=== PATIENT | male | born 1930 | race Caucasian/White ===

== ENCOUNTER 2017-01-29 15:44 | Inpatient (IN) ==
[2017-01-29] MEDS ORDERED: ACETAMINOPHEN 325 MG TABLET PO PRN (16:00)
[2017-01-29] MEDS ORDERED: HYDROmorphone 2 MG/1 ML VIAL IV PRN (16:00)
[2017-01-29] MEDS: SODIUM CHLORIDE 0.9% 1,000 ML IV SCH (17:32)
[2017-01-29] MEDS: ENOXAPARIN 40 MG/0.4 ML SYRINGE SUBCUT SCH (17:32)
[2017-01-29 18:15] LABS: Basophils % 0.3 % (0.0-0.8); Eosinophils % 0.3 % (0.00-10.9); Hematocrit 44.3 VOL% (42.0-52.0); Hemoglobin 15.4 GM/DL (14.0-18.0); Immature Granulocytes % 0.2 %; Immature Granulocytes Absolute 0.02 #; Lymphocytes # 0.9 10*3/uL (1.4-4.0); Lymphocytes % 10.2 % (21.2-54.2); Mean Corpuscular HGB Conc 34.8 GM/DL (32-36); Mean Corpuscular Hemoglobin 32 PG (27-34); Mean Corpuscular Volume 91.7 FL (87-102); Mean Platelet Volume 10.1 FL (9.6-12.0); Monocytes % 10.7 % (1.7-12.7); Neutrophils # 6.9 10*3/uL (1.4-7.4); Neutrophils % 78.3 % (38.7-73.9); Platelet Count 220 T/CUMM (130-400); Red Blood Count 4.83 MC/CUMM (3.8-5.5); White Blood Count 8.8 T/CUMM (4-12)
[2017-01-29 18:38] LABS: Albumin 3.6 G/DL (3.4-5.0); Bilirubin,Total 1.6 MG/DL (0.2-1.0); Calcium 8.8 MG/DL (8.5-10.1); Osmolality,Calculated 277.7 MOS/KG (273-304); Potassium 3.7 MMOL/L (3.5-5.1); Total Protein 6.6 G/DL (6.4-8.3)
[2017-01-29] MEDS: ONDANSETRON 4 MG/2 ML VIAL IV PRN (19:05)
--- NOTE | 2017-01-29 20:45 | CT Report ---
CT abdomen pelvis w con Indication: Abdominal pain/pelvic pain Comparison: 01/27/2017. Technique: CT of the abdomen and pelvis was performed following administration of intravenous contrast. Coronal and sagittal reformatted images were additionally created and submitted for review. The total DLP is 328 mGy*cm. Dose reduction: This CT exam was performed using one or more of the following dose reduction techniques: Automated exposure control, automated adjustment of the mA and/or KV according to patient size, or use of iterative reconstruction technique. Findings: Posterior basilar atelectasis is noted. There is no pleural or pericardial effusion. ABDOMEN: Liver/Gallbladder: No abnormal enhancing lesions. No biliary ductal dilatation or gallstones. Portal vein is patent. Spleen: No acute findings. Pancreas: No acute findings. Adrenals: Within normal limits in appearance. Kidneys: Kidneys enhance symmetrically. There is normal excretion on delayed images. There is no hydronephrosis. Bowel/mesentery: Moderate distal dilatation of the small bowel is noted throughout the abdomen/pelvis. In the right lower quadrant, there is transition to collapsed bowel (axial image 99-100). The findings are compatible with high-grade partial small bowel obstruction. There is also a moderate amount of interloop fluid noted in the right lower quadrant suggesting developing mesenteric edema. There is minimal free fluid in the dependent pelvis as well which is likely reactive. There is no free air. There is no mesenteric adenopathy. Colon is largely collapsed with scattered fecal material and scattered diverticula with no CT evidence of acute diverticulitis. Retroperitoneum: No evidence of aortic aneurysm or significant retroperitoneal adenopathy. PELVIS: Minimal free fluid, likely reactive. Prostate is enlarged measuring up to 5 cm in the axial plane. There is no adenopathy in the pelvis. Bladder is mildly distended but otherwise unremarkable. BONES: No acute or suspicious osseous abnormalities are identified. Left total hip arthroplasty hardware causes streak artifact and otherwise poorly evaluated. Multilevel moderate to advanced degenerative changes noted within the thoracic and lumbar spine. IMPRESSION: 1. Findings compatible with high-grade small bowel obstruction with transition point in the right lower quadrant. Minimal free fluid also noted about the distal abdominal right lower quadrant and pelvis. Surgical consultation is warranted. No free air. 2. No other acute evaluate within the abdomen or pelvis. Other incidental findings as above. 01/29/2017 7:55 PM PROCEDURE INTERPRETED AT [facility] DEPARTMENT OF RADIOLOGY Final Report Signed by: Choco Booth
[2017-01-29] MEDS: DOCUSATE SODIUM 100 MG CAPSULE PO SCH (21:17)
[2017-01-29] MEDS: LEVOFLOXACIN INJ 500 MG in PREMIX 1 EACH IV SCH (21:18)
[2017-01-30] MEDS: ONDANSETRON 4 MG/2 ML VIAL IV PRN (03:03)
[2017-01-30] MEDS: SODIUM CHLORIDE 0.9% 1,000 ML IV SCH ×3 (03:04→19:37)
--- NOTE | 2017-01-30 07:58 | Family Practice History&Phys ---
Assessment and Plan (1) Small bowel obstruction Status: Acute Assessment and plan: 01/30/2017: CT scan of the abdomen and pelvis revealed him to have a mechanical small bowel obstruction. Surgery will be consulted. Current Visit: Yes (2) Gastroenteritis Status: Acute Assessment and plan: 01/30/2017: IV fluids were begun. Surgical consultation has been sought. Current Visit: No History of Present Illness Chief complaint: Abdominal pain History of present illness: Mr. Lim is a 86 year old male Patient's 86-year-old white male presented my office on day of admission with abdominal pain, nausea and vomiting. Patient had been seen in the emergency room and had a CT scan of the abdomen which showed abnormality in his distal small bowel. Patient states she has not had any bowel movement in the last 5 days and has had persistent nausea and vomiting and loss of appetite. Patient was noted to have a 4 pound weight loss on arrival to my office. It was felt that admission was warranted due to the severity of his symptoms. Patient agreed with this plan. An emergent CT the abdomen/pelvis will be repeated with oral and IV contrast. Home Medications Medication Instructions Recorded Confirmed Type No Known Home Medications [No 01/29/17 01/29/17 History Known Home Medications] Allergies Allergy/AdvReac Type Severity Reaction Status Date / Time No Known Allergies Allergy Verified 01/27/17 07:36 - Constitutional Constitutional: Present: fatigue, weakness. Absent: chills, fever(s) - EENT Eyes: Absent: blurry vision, loss of vision Ears: Absent: decreased hearing, ear pain Nose, mouth and throat: Absent: dysphagia, nasal congestion, sore throat - Cardiovascular Cardiovascular: Absent: chest pain at rest, dyspnea, orthopnea, palpitations, PND - Respiratory Respiratory: Absent: cough, dyspnea, wheezing - Gastrointestinal Gastrointestinal: Present: abdominal pain, bloating, constipation, cramping, nausea, vomiting. Absent: hematemesis, hematochezia - Genitourinary Genitourinary: Absent: dysuria, urinary frequency, urinary incontinence - Musculoskeletal Musculoskeletal: Absent: arthralgias, back pain - Neurological Neurological: Absent: confusion, focal weakness, numbness, paresthesias - Psychiatric Psychiatric: Absent: anxiety, confusion - Endocrine Endocrine: Absent: fatigue, polydipsia, polyphagia - Hematologic/Lymphatic Hematologic/Lymphatic: Absent: easy bleeding, easy bruising Medical,Surgical,& Family Hx - Medical History Medical History: noncontributory - Surgical History Abdominal Surgeries: Surgical HX of: Appendectomy, Hernia Repair Orthopedic Surgeries: Surgical HX of;: Total Hip Replacement (LEFT) - Family History Family History: noncontributory - Social History Smoking Status: Never smoker Frequency of Alcohol Use: None Type of Drug Use: None Exam - Constitutional Vitals: Period Temp Pulse Resp BP Sys/Bonner Pulse Ox Last 24 Hr 98 F-98.2 F 75-89 20-20 133-156/74-87 92-97 Exam: General: Objective patient is a well-developed white male who appeared a bit dehydrated in the office. He appeared very uncomfortable but was able to give an excellent history. He has enjoyed robust health office life. HEENT: Pupils equal and reactive to light. Patent nares and airway Neck: No meningismus, adenopathy, thyromegaly. There are no auscultated carotid bruits. Cardiovascular: Regular rhythm. No murmurs or gallops Chest: Clear to auscultation without rales rhonchi wheezes. Abdomen: Them is noted to be slightly distended. He is noted to have high- pitched bowel sounds. There is no palpable mass, rebound or guarding tenderness noted. He is noted to have diffuse direct tenderness. Neuro: Cranial nerves intact and DTRs and strength symmetric in all extremities. Dermatologic: No evidence of abnormal lesions or masses. Musculoskeletal: There is no joint swelling or tenderness or deformity. Extremities: There is no calf swelling or tenderness. Results - Labs CBC & BMP: 01/29/17 17:42 01/29/17 17:42 Lab Results: I have reviewed the past 24 hour labs - Diagnostic Findings Procedure: CT Abdomen and Pelvis: report reviewed by me (Small bowel obstruction ) Quality Measures - Stroke Symptom Onset Unknown: No
--- NOTE | 2017-01-30 08:04 | EKG Report ---
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
[2017-01-30] MEDS: PANTOPRAZOLE 40 MG TABLET PO SCH (08:27)
[2017-01-30] MEDS: DOCUSATE SODIUM 100 MG CAPSULE PO SCH ×2 (08:27→20:52)
--- NOTE | 2017-01-30 08:35 | XRay Report ---
Portable chest January 30, 2017 at 0751 hours Indication: Shortness of breath, cough Comparison: Not available Findings: Heart size is top normal. Lungs are clear bilaterally. No acute osseous abnormalities. Visualized upper abdomen demonstrates no acute pathology. Impression: No acute cardiopulmonary findings PROCEDURE INTERPRETED AT [facility] DEPARTMENT OF RADIOLOGY Final Report Signed by: Robbie Jensen
--- NOTE | 2017-01-30 10:50 | General Surgery Consult Note ---
Assessment and Plan - Time spent with patient Time spent with patient: Greater than 30 minutes (1) Small bowel obstruction Status: Acute Assessment and plan: This appears to be a typical small bowel obstruction likely secondary to adhesions and I do not see evidence of intestinal compromise or ischemia. I discussed his options for treatment which would include surgery but also the option initially of conservative treatment with nasogastric suction and IV fluids. I explained that he may have up to a 50% chance of resolution of the small bowel obstruction without surgery but if he is not responding to nasogastric suction over the next 24 hours or so we would need to revisit the issue of surgery. He would like to try conservative management initially which I think is reasonable. This will also give us an opportunity to rehydrate him and correct any underlying volume depletion. His BUN is somewhat elevated but his creatinine is normal. This is likely related to some degree of volume depletion. Overall he looks good and feels well and his abdomen is nontender. If he does not respond to conservative treatment then he understands that he will likely require laparotomy. The procedure and risks were discussed in detail. Current Visit: Yes History of Present Illness Chief complaint: Abdominal pain History of present illness: Mr. Lim is a 86 year old male Who for about 5 days is had intermittent abdominal pain and distention and cramping. This has stayed moderate in severity. It is intermittent and does not radiate and is poorly localized in his lower abdomen. He is better if he massages his abdomen. He has not had a bowel movement or flatus in 5 days. He has had nausea and vomiting. He felt better after he vomited. He had a CT scan showing a high-grade partial small bowel obstruction in his right lower quadrant. He has had previous appendectomy and previous hernia surgery. Home Medications Medication Instructions Recorded Confirmed Type No Known Home Medications [No 01/29/17 01/29/17 History Known Home Medications] Allergies Allergy/AdvReac Type Severity Reaction Status Date / Time No Known Allergies Allergy Verified 01/27/17 07:36 Medical,Surgical,& Family Hx - Medical History Medical History: noncontributory - Surgical History Abdominal Surgeries: Surgical HX of: Appendectomy, Hernia Repair Orthopedic Surgeries: Surgical HX of;: Total Hip Replacement (LEFT) - Family History Family History: noncontributory - Social History Smoking Status: Never smoker Frequency of Alcohol Use: None Type of Drug Use: None - Constitutional Constitutional: Present: anorexia. Absent: chills, fever(s), weight loss - EENT Nose, mouth and throat: Absent: dysphagia - Cardiovascular Cardiovascular: Absent: chest pain at rest, chest pain with activity, dyspnea, dyspnea on exertion, syncope - Respiratory Respiratory: Absent: dyspnea, hemoptysis, dyspnea on exertion - Gastrointestinal Gastrointestinal: Present: abdominal pain, bloating, cramping, nausea, vomiting. Absent: diarrhea, hematemesis, hematochezia, jaundice - Genitourinary Genitourinary: Absent: hematuria - Musculoskeletal Musculoskeletal: Absent: back pain - Neurological Neurological: Absent: focal weakness, syncope - Endocrine Endocrine: Absent: polyuria Hematologic/Lymphatic: Absent: easy bleeding, easy bruising Exam - Constitutional Vitals: Period Temp Pulse Resp BP Sys/Bonner Pulse Ox Last 24 Hr 97.3 F-98.2 F 75-89 18-20 133-156/74-87 92-97 General appearance: no acute distress - Head Head exam: Present: normocephalic - Eye Eye exam: Absent: scleral icterus - ENT Mouth exam: Present: normal voice - Neck Neck exam: Present: trachea midline - Respiratory Respiratory exam: Present: clear to auscultation bilaterally. Absent: accessory muscle use - Cardiovascular Cardiovascular exam: Present: RRR - GI/Abdominal GI/Abdominal exam: Present: hypoactive bowel sounds, soft. Absent: distended, guarding, mass, Napoles's sign, tenderness, rebound - Extremities Exam Extremities exam: Absent: edema - Neurological Exam Neurological exam: Present: alert, oriented X3. Absent: motor sensory deficit Speech: Present: normal - Skin Skin exam: Present: normal color Quality Measures - Stroke Symptom Onset Unknown: No Results - Labs CBC & BMP: 01/29/17 17:42 01/29/17 17:42 Lab Results: I have reviewed the past 24 hour labs - Diagnostic Findings Procedure: CT Abdomen and Pelvis: image reviewed by me, report reviewed by me
--- NOTE | 2017-01-30 11:52 | Gastrointestinal Consult Note ---
Assessment and Plan (1) Small bowel obstruction Status: Acute Assessment and plan: 01/30-5 day history of abdominal pain with intractable nausea and vomiting as well as constipation. Findings as below on CT of abdomen with high-grade small bowel obstruction. NG tube to be placed today and continue to monitor. Plan an addendum to followed by Dr. Camren. Current Visit: Yes History of Present Illness Chief complaint: Abdominal pain History of present illness: Mr. Lim is a 86 year old male who was admitted to the hospital with 5 day history of abdominal pain, nausea and vomiting. Patient states that he was in his usual state of health until possibly 5 days ago when he had an onset of mid umbilical abdominal pain. He states the pain was also associated with nausea and vomiting as well as complete loss of appetite. Patient states that every time he would try to eat or drink something he would immediately regurgitate it. He states that he has not had a bowel movement as well in the last 5 days and does not recall passing any flatulence since then as well. Patient reports approximately 4 pound weight loss over the last several days due to not eating. Patient was seen by Dr. Hardy in the clinic and at that time had a CT of abdomen done which showed high-grade small bowel obstruction with transition point in the right lower quadrant with minimal free air. He was then admitted to the hospital for further evaluation. Patient has a history of appendectomy and hernia repair in the past. States that he is relatively healthy and has no prior history of GI issues as well. He has been seen and consulted by Dr. Mclaughlin and at this time he is to have an NG tube placed and reevaluation in the next 24 hours with hopes of improvement with conservative treatment. Home Medications Medication Instructions Recorded Confirmed Type No Known Home Medications [No 01/29/17 01/29/17 History Known Home Medications] Allergies Allergy/AdvReac Type Severity Reaction Status Date / Time No Known Allergies Allergy Verified 01/27/17 07:36 Medical,Surgical,& Family Hx - Surgical History Abdominal Surgeries: Surgical HX of: Appendectomy, Hernia Repair Orthopedic Surgeries: Surgical HX of;: Total Hip Replacement (LEFT) - Social History Smoking Status: Never smoker Frequency of Alcohol Use: None Type of Drug Use: None 12 point system: reviewed and no additional remarkable complaints except as stated - Constitutional Constitutional: Present: as per HPI - EENT Eyes: Present: as per HPI Ears: Present: as per HPI Nose, mouth and throat: Present: as per HPI - Cardiovascular Cardiovascular: Present: as per HPI - Respiratory Respiratory: Present: as per HPI - Gastrointestinal Gastrointestinal: Present: as per HPI, abdominal pain, constipation, nausea, vomiting - Genitourinary Genitourinary: Present: as per HPI - Musculoskeletal Musculoskeletal: Present: as per HPI - Neurological Neurological: Present: as per HPI - Psychiatric Psychiatric: Present: as per HPI - Endocrine Endocrine: Present: as per HPI - Hematologic/Lymphatic Hematologic/Lymphatic: Present: as per HPI Exam - Constitutional Vitals: Period Temp Pulse Resp BP Sys/Bonner Pulse Ox Last 24 Hr 97.3 F-98.2 F 75-89 18-20 133-156/74-87 92-97 General appearance: normal weight, no acute distress - Head Head exam: Present: normal inspection, normocephalic - Eye Eye exam: Present: other (Lids and conjunctivae are unremarkable). Absent: scleral icterus - ENT ENT exam: Present: normal exam, normal oropharynx - Neck Neck exam: Present: normal inspection - Respiratory Respiratory exam: Present: clear to auscultation bilaterally. Absent: rales, rhonchi, wheezes - Cardiovascular Cardiovascular exam: Present: regular rate and rhythm. Absent: diastolic murmur , JVD, systolic murmur - GI/Abdominal GI/Abdominal exam: Present: hypoactive bowel sounds, soft. Absent: ascites, distended, mass, organomegaly - Extremities Exam Extremities exam: Present: normal inspection, full ROM - Back Exam Back exam: Present: normal inspection - Neurological Exam Neurological exam: Present: alert, oriented X3 - Psychiatric Psychiatric exam: Present: normal affect, normal mood - Skin Skin exam: Present: normal color, warm, dry Results - Labs CBC & BMP: 01/29/17 17:42 01/29/17 17:42 Lab Results: I have reviewed the past 24 hour labs - Diagnostic Findings Procedure: CT Abdomen and Pelvis: report reviewed by me Quality Measures - Stroke Symptom Onset Unknown: No
--- NOTE | 2017-01-30 13:59 | XRay Report ---
Exam: XR chest /upper abdomen 1V portable Date: 01/30/2017 1:33 PM Indication: Nasogastric tube placement Comparison: 01/30/2017 7:51 AM. Technical: AP portable Findings: Nasogastric tube has been placed the distal some the fundus of the stomach. Mild prominence the cardiac silhouette. Some dilated change in the base regions bilaterally. Lateral marginal osteophytes are present. Liver shadow spleen and renal shadows are not well seen. Some dilated bowel in the upper abdomen. No pneumothorax or pneumoperitoneum. Impression: 1. Interval placement nasogastric tube in the fundus of the stomach 2. Remainder examination is unchanged with underlying atelectatic change. 3. Abdominal ileus pattern or partial small bowel obstruction PROCEDURE INTERPRETED AT [facility] DEPARTMENT OF RADIOLOGY Final Report Signed by: Dr. Dameon Hannah
[2017-01-30 15:31] LABS: Apearance,Urine CLEAR (Clear); Bilirubin,Urine Negative (Negative); Blood, Urine Small mg/dL (Negative); Glucose,Urine (UA) Negative (Negative); Ketones,Urine 80 mg/dL (Negative); Mucus,Urine Occasional /LPF (Occasional); Nitrite,Urine Negative (Negative); Protein,Urine Negative; RBC,Urine 1 /HPF (0-4); Squamous Epithelial Cell,Urine Occasional /HPF (0-10); Urine Color Yellow (Yellow); Urine Specific Gravity 1.036 (1.001-1.035); WBC,Urine <1 /HPF (0-6)
[2017-01-30] MEDS: ENOXAPARIN 40 MG/0.4 ML SYRINGE SUBCUT SCH (20:49)
[2017-01-30] MEDS: LEVOFLOXACIN INJ 500 MG in PREMIX 1 EACH IV SCH (20:49)
[2017-01-31] MEDS: SODIUM CHLORIDE 0.9% 1,000 ML IV SCH ×2 (05:42→20:21)
--- NOTE | 2017-01-31 07:52 | Family Practice Progress Note ---
Family Practice - PN: Subj Interval history: Patient states he had a much better night last night and is abdominal pain and bloating are much improved with NG suction. Is a minimal amount of fluid in his suction canister. He told me he passed a little gas this morning. I told him we may clamp his NG tube and see how he does. Dr. Mclaughlin will see him today. Exam (Progress Note) - Constitutional Vitals: Period Temp Pulse Resp BP Sys/Bonner Pulse Ox Last 24 Hr 97.3 F-98.5 F 75-87 16-20 126-153/67-86 93-97 Exam: Objective well-developed gentleman in no acute distress. He is awake and alert and appears much more comfortable than he did on day of admission. Cardiovascular: Heart rates regular and there are no murmurs or gallops. Respiratory: Lungs clear to auscultation bilaterally. Abdomen: Abdomen soft and nontender to palpation with no distention. I do appreciate bowel sounds. Results - Labs CBC & BMP: 01/29/17 17:42 01/29/17 17:42 Lab Results: I have reviewed the past 24 hour labs Assessment and Plan (1) Small bowel obstruction Status: Acute Assessment and plan: 01/30/2017: CT scan of the abdomen and pelvis revealed him to have a mechanical small bowel obstruction. Surgery will be consulted. 01/31/2017: Patient is clinically improving with NG tube suctioning Current Visit: Yes (2) Gastroenteritis Status: Acute Assessment and plan: 01/30/2017: IV fluids were begun. Surgical consultation has been sought. 01/31/2017: Patient is clinically improved Current Visit: No Quality Measures - Stroke Symptom Onset Unknown: No
--- NOTE | 2017-01-31 08:58 | General Surgery Progress Note ---
Assessment and Plan (1) Small bowel obstruction Status: Acute Assessment and plan: This appears to be a typical small bowel obstruction likely secondary to adhesions and I do not see evidence of intestinal compromise or ischemia. I discussed his options for treatment which would include surgery but also the option initially of conservative treatment with nasogastric suction and IV fluids. I explained that he may have up to a 50% chance of resolution of the small bowel obstruction without surgery but if he is not responding to nasogastric suction over the next 24 hours or so we would need to revisit the issue of surgery. He would like to try conservative management initially which I think is reasonable. This will also give us an opportunity to rehydrate him and correct any underlying volume depletion. His BUN is somewhat elevated but his creatinine is normal. This is likely related to some degree of volume depletion. Overall he looks good and feels well and his abdomen is nontender. If he does not respond to conservative treatment then he understands that he will likely require laparotomy. The procedure and risks were discussed in detail. 01/31: He looks and feels much better. He denies abdominal pain this morning. He passed a little flatus but has no bowel movement. I would continue the nasogastric tube for now. If he is better tomorrow then we may discontinue his tube. Hopefully we can avoid surgery. Current Visit: Yes Subjective Patient reports: Present: feels better, pain is less, flatus, no bowel movement. Absent: fever Exam - Constitutional Vitals: Period Temp Pulse Resp BP Sys/Bonner Pulse Ox Last 24 Hr 97.8 F-98.5 F 75-87 16-20 121-153/67-86 93-97 General appearance: no acute distress - Head Head exam: Present: normocephalic - Eye Eye exam: Absent: scleral icterus - ENT Mouth exam: Present: normal voice - Respiratory Respiratory exam: Absent: accessory muscle use - GI/Abdominal GI/Abdominal exam: Present: soft. Absent: distended, tenderness, rebound Results - Labs CBC & BMP: 01/29/17 17:42 01/29/17 17:42 Quality Measures - Stroke Symptom Onset Unknown: No
[2017-01-31] MEDS: PANTOPRAZOLE 40 MG TABLET PO SCH (10:37)
[2017-01-31] MEDS: DOCUSATE SODIUM 100 MG CAPSULE PO SCH (10:37)
--- NOTE | 2017-01-31 11:24 | Gastrointestinal Progress Note ---
Assessment and Plan (1) Small bowel obstruction Status: Acute Assessment and plan: 01/31-no complaints of nausea vomiting, no abdominal pain. NG remains to suction. Reports of flatus but no bowel movement. Continue to monitor present time. Plan an addendum to followed by Dr. Carmen 01/30-5 day history of abdominal pain with intractable nausea and vomiting as well as constipation. Findings as below on CT of abdomen with high-grade small bowel obstruction. NG tube to be placed today and continue to monitor. Plan an addendum to followed by Dr. Carmen. Current Visit: Yes Gastroenterology - PN: Subj Interval history: CC: Abdominal pain Patient is seen awake and alert sitting up in chair. States he rested well overnight and is feeling much better today. He denies any nausea or vomiting as well as abdominal pain. States he has had a little flatus last night and this morning but no bowel movement. He is continued with NG tube to suction at this time with small amount of gastric drainage noted. Abdomen is soft, nontender. Hypoactive bowel sounds noted. ROS: Denies shortness of breath or chest pain Exam (Progress Note) - Constitutional Vitals: Period Temp Pulse Resp BP Sys/Bonner Pulse Ox Last 24 Hr 97.8 F-98.5 F 75-87 16-20 121-153/67-86 93-97 - Other Additional findings: General appearance: normal weight, no acute distress - Head Head exam: Present: normal inspection, normocephalic - Eye Eye exam: Present: other (Lids and conjunctivae are unremarkable). Absent: scleral icterus - ENT ENT exam: Present: normal exam, normal oropharynx - Neck Neck exam: Present: normal inspection - Respiratory Respiratory exam: Present: clear to auscultation bilaterally. Absent: rales, rhonchi, wheezes - Cardiovascular Cardiovascular exam: Present: regular rate and rhythm. Absent: diastolic murmur , JVD, systolic murmur - GI/Abdominal GI/Abdominal exam: Present: hypoactive bowel sounds, soft. Absent: ascites, distended, mass, organomegaly - Extremities Exam Extremities exam: Present: normal inspection, full ROM - Back Exam Back exam: Present: normal inspection - Neurological Exam Neurological exam: Present: alert, oriented X3 - Psychiatric Psychiatric exam: Present: normal affect, normal mood - Skin Skin exam: Present: normal color, warm, dry Results - Labs CBC & BMP: 01/29/17 17:42 01/29/17 17:42 Lab Results: I have reviewed the past 24 hour labs
[2017-01-31] MEDS: ENOXAPARIN 40 MG/0.4 ML SYRINGE SUBCUT SCH (20:24)
[2017-01-31] MEDS: LEVOFLOXACIN INJ 500 MG in PREMIX 1 EACH IV SCH (20:24)
[2017-02-01] MEDS: DOCUSATE SODIUM 100 MG CAPSULE PO SCH ×3 (00:41→20:47)
[2017-02-01] MEDS: SODIUM CHLORIDE 0.9% 1,000 ML IV SCH ×2 (05:23→14:50)
--- NOTE | 2017-02-01 08:06 | Discharge Summary ---
Hospital Course - Hospital Course Hospital Course: The patient is a 86-year-old gentleman who was admitted from the office with severe abdominal pain, bloating and nausea with vomiting. Patient was admitted to my services. He had a previous CT scan showed evidence of enteritis. A repeat CT scan was performed with oral and IV contrast which revealed him to have a mechanical small bowel obstruction. Patient was admitted to my services. He was seen and consultation by Dr. Lissette HENSON and patient elected to proceed with NG tube suctioning. NG tube was placed patient had dramatic improvement in his symptomatology. He is now having some flatulence and we will plan on advancing his diet and if he does well with this he can probably go home in the morning. Diagnosis - Discharge Diagnosis (1) Small bowel obstruction Status: Acute (2) Gastroenteritis Status: Acute Discharge Plan - Discharge Data Disposition: Disch To Home/Self Care Condition at Discharge: Stable Discharge Diet: advance to your usual diet Activity: resume usual activities as tolerated Hygiene: no restrictions Weight Bearing at Discharge: full weight bearing Driving: no restrictions Contact your physician if you experience:: fever over 101 - Discharge Medications No Action No Known Home Medications [No Known Home Medications] - Follow Up or Referral Follow Up: Tc Hardy MD [Physician] - 2 Weeks - Forms/Instructions Exam - Constitutional Vitals: Period Temp Pulse Resp BP Sys/Bonner Pulse Ox Last 24 Hr 97.4 F-98.1 F 72-99 18-20 114-130/66-75 92-97 Exam: Objective well-developed gentleman in no acute distress. He is awake and alert and appears much more comfortable. Patient is ready to have his NG tube out. Cardiovascular: Heart rates regular and there are no murmurs or gallops. Respiratory: Lungs clear to auscultation bilaterally. Abdomen: Abdomen soft and nontender to palpation with no distention. I do appreciate bowel sounds. Discharge Results Procedures and tests throughout hospitalization: Pending Orders 01/29/17 17:42 Blood Culture Stat 01/30/17 11:14 Urine Culture Stat Labs on day of discharge: Preliminary micro results at discharge 01/30/17 11:14 Urine Culture - Preliminary Urine,Voided No Growth at 24 hours. 01/29/17 17:42 Blood Culture - Preliminary Blood No growth at 1 day 01/29/17 17:42 Blood Culture - Preliminary Blood No growth at 1 day DS: Provider Date of admission: 01/29/17 16:00 Primary care physician: Uzair Vincent MD Attending physician on admission: Tc Hardy MD Consults: 01/29/17 16:00 Consult to Case Mgmt/Social Srvs [CONS] Routine Reason for Case Mgmt/Social Srvs: Discharge Planning 01/29/17 17:25 Consult to Dietitian [CONS] Routine Reason for Dietitian: Dietary Consult Consult to Pastoral Services [CONS] Routine Comment: Pastoral Screen: Request [employer] Visit 01/30/17 07:10 Consult to Physician [CONS] Routine Comment: Consulting Provider: Constantine Mclaughlin III. Person Notified: SHARA Date Notified: 01/30/17 Time Notified: 09:39 Consult to Physician [CONS] Routine Comment: Consulting Provider: Dameon Carmen Person Notified: MICHELLE Fleming Date Notified: 01/30/17 Time Notified: 08:40 01/30/17 07:12 Consult to Physician [CONS] Routine Comment: Consulting Provider: Discharging clinician: Tc Hardy MD Expected date of discharge: 02/02/17
[2017-02-01] MEDS: PANTOPRAZOLE 40 MG TABLET PO SCH (08:36)
--- NOTE | 2017-02-01 09:38 | Gastrointestinal Progress Note ---
Assessment and Plan (1) Small bowel obstruction Status: Acute Assessment and plan: 02/01-abdominal pain, nausea and vomiting resolved. NG has been removed. Tolerating soft diet at this time. Plan an addendum to followed by Dr. Carmen. 01/31-no complaints of nausea vomiting, no abdominal pain. NG remains to suction. Reports of flatus but no bowel movement. Continue to monitor present time. Plan an addendum to followed by Dr. Carmen 01/30-5 day history of abdominal pain with intractable nausea and vomiting as well as constipation. Findings as below on CT of abdomen with high-grade small bowel obstruction. NG tube to be placed today and continue to monitor. Plan an addendum to followed by Dr. Carmen. Current Visit: Yes Gastroenterology - PN: Subj Interval history: CC: Small bowel obstruction She is seen awake and alert with at bedside. His NG tube was pulled on yesterday and he states he is feeling much better today. He states that he has passed a little bit of flatus last night but he has not had a bowel movement as of yet. He was given a soft diet this morning and he tolerated this well without nausea, vomiting or increased abdominal pain. Abdomen is soft, nontender. He is to get up and ambulate some today as well. If he continues to improve he is for possible discharge home in the next day or so. ROS: Denies shortness of breath or chest pain Exam (Progress Note) - Constitutional Vitals: Period Temp Pulse Resp BP Sys/Bonner Pulse Ox Last 24 Hr 97.4 F-98.1 F 67-99 18-20 114-138/66-75 92-97 - Other Additional findings: General appearance: normal weight, no acute distress - Head Head exam: Present: normal inspection, normocephalic - Eye Eye exam: Present: other (Lids and conjunctivae are unremarkable). Absent: scleral icterus - ENT ENT exam: Present: normal exam, normal oropharynx - Neck Neck exam: Present: normal inspection - Respiratory Respiratory exam: Present: clear to auscultation bilaterally. Absent: rales, rhonchi, wheezes - Cardiovascular Cardiovascular exam: Present: regular rate and rhythm. Absent: diastolic murmur , JVD, systolic murmur - GI/Abdominal GI/Abdominal exam: Present: bowel sounds, soft. Absent: ascites, distended, mass, organomegaly - Extremities Exam Extremities exam: Present: normal inspection, full ROM - Back Exam Back exam: Present: normal inspection - Neurological Exam Neurological exam: Present: alert, oriented X3 - Psychiatric Psychiatric exam: Present: normal affect, normal mood - Skin Skin exam: Present: normal color, warm, Results - Labs CBC & BMP: 01/29/17 17:42 01/29/17 17:42 Lab Results: I have reviewed the past 24 hour labs Specialty Discharge - Follow Up or Referrals Follow up with: Tc Hardy MD [Physician] - 2 Weeks
--- NOTE | 2017-02-01 10:02 | General Surgery Progress Note ---
Assessment and Plan (1) Small bowel obstruction Status: Acute Assessment and plan: This appears to be a typical small bowel obstruction likely secondary to adhesions and I do not see evidence of intestinal compromise or ischemia. I discussed his options for treatment which would include surgery but also the option initially of conservative treatment with nasogastric suction and IV fluids. I explained that he may have up to a 50% chance of resolution of the small bowel obstruction without surgery but if he is not responding to nasogastric suction over the next 24 hours or so we would need to revisit the issue of surgery. He would like to try conservative management initially which I think is reasonable. This will also give us an opportunity to rehydrate him and correct any underlying volume depletion. His BUN is somewhat elevated but his creatinine is normal. This is likely related to some degree of volume depletion. Overall he looks good and feels well and his abdomen is nontender. If he does not respond to conservative treatment then he understands that he will likely require laparotomy. The procedure and risks were discussed in detail. 01/31: He looks and feels much better. He denies abdominal pain this morning. He passed a little flatus but has no bowel movement. I would continue the nasogastric tube for now. If he is better tomorrow then we may discontinue his tube. Hopefully we can avoid surgery. 02/01: He looks and feels better. He denies abdominal pain. He is not having nausea and is passing flatus. We will remove his nasogastric tube today and start him on some liquids. Hopefully his bowel obstruction is resolved. Current Visit: Yes Subjective Patient reports: Present: feels better, pain is less, flatus, no bowel movement. Absent: nausea, vomiting, shortness of breath Exam - Constitutional Vitals: Period Temp Pulse Resp BP Sys/Bonner Pulse Ox Last 24 Hr 97.4 F-98.1 F 67-99 18-20 114-138/66-75 92-97 General appearance: no acute distress - Head Head exam: Present: normocephalic - Eye Eye exam: Absent: scleral icterus - Respiratory Respiratory exam: Absent: accessory muscle use - GI/Abdominal GI/Abdominal exam: Present: normal bowel sounds, soft. Absent: distended, tenderness, rebound Results - Labs CBC & BMP: 01/29/17 17:42 01/29/17 17:42 Quality Measures - Stroke Symptom Onset Unknown: No Specialty Discharge - Follow Up or Referrals Follow up with: Tc Hardy MD [Physician] - 2 Weeks
[2017-02-01] MEDS: LEVOFLOXACIN INJ 500 MG in PREMIX 1 EACH IV SCH (20:47)
[2017-02-01] MEDS: ENOXAPARIN 40 MG/0.4 ML SYRINGE SUBCUT SCH (20:47)
[2017-02-02] MEDS: SODIUM CHLORIDE 0.9% 1,000 ML IV SCH ×3 (01:25→17:40)
[2017-02-02] MEDS: PANTOPRAZOLE 40 MG TABLET PO SCH (10:05)
[2017-02-02] MEDS: DOCUSATE SODIUM 100 MG CAPSULE PO SCH (10:05)
--- NOTE | 2017-02-02 10:16 | General Surgery Progress Note ---
Assessment and Plan (1) Small bowel obstruction Status: Acute Assessment and plan: This appears to be a typical small bowel obstruction likely secondary to adhesions and I do not see evidence of intestinal compromise or ischemia. I discussed his options for treatment which would include surgery but also the option initially of conservative treatment with nasogastric suction and IV fluids. I explained that he may have up to a 50% chance of resolution of the small bowel obstruction without surgery but if he is not responding to nasogastric suction over the next 24 hours or so we would need to revisit the issue of surgery. He would like to try conservative management initially which I think is reasonable. This will also give us an opportunity to rehydrate him and correct any underlying volume depletion. His BUN is somewhat elevated but his creatinine is normal. This is likely related to some degree of volume depletion. Overall he looks good and feels well and his abdomen is nontender. If he does not respond to conservative treatment then he understands that he will likely require laparotomy. The procedure and risks were discussed in detail. 01/31: He looks and feels much better. He denies abdominal pain this morning. He passed a little flatus but has no bowel movement. I would continue the nasogastric tube for now. If he is better tomorrow then we may discontinue his tube. Hopefully we can avoid surgery. 02/01: He looks and feels better. He denies abdominal pain. He is not having nausea and is passing flatus. We will remove his nasogastric tube today and start him on some liquids. Hopefully his bowel obstruction is resolved. 02/02: He feels well and is tolerating a diet. He has had 2 bowel movements. He has no symptoms now and has no feeling of reduction or abdominal pain. It appears that a small bowel obstruction has resolved. I will leave discharge up to you. Current Visit: Yes Subjective Patient reports: Present: feels better, tolerating a regular diet, bowel movement. Absent: still having pain, nausea, vomiting, shortness of breath Exam - Constitutional Vitals: Period Temp Pulse Resp BP Sys/Bonner Pulse Ox Last 24 Hr 97.4 F-98.8 F 52-94 18-20 106-139/56-76 94-97 General appearance: no acute distress - Respiratory Respiratory exam: Absent: accessory muscle use - GI/Abdominal GI/Abdominal exam: Present: soft. Absent: distended, tenderness, rebound Results - Labs CBC & BMP: 01/29/17 17:42 01/29/17 17:42 Quality Measures - Stroke Symptom Onset Unknown: No Specialty Discharge - Follow Up or Referrals Follow up with: Tc Hardy MD [Physician] - 2 Weeks
[2017-02-02 15:57] VITALS: BP 122/63
--- NOTE | 2017-02-02 17:08 | Internal Med Progress Note ---
Assessment and Plan (1) Small bowel obstruction Status: Acute Current Visit: Yes (2) Gastroenteritis Status: Acute Current Visit: No Internal Medicine - PN: Subj Interval history: This is an 86 year old male patient of Dr. Tc Hardy with history of OA who presented with acute gastroenteritis and partial small bowel obstruction which has resolved. Will discharge him home today. Dr. Hardy has already addressed discharge summary and meds. Exam (Progress Note) - Constitutional Vitals: Period Temp Pulse Resp BP Sys/Bonner Pulse Ox Last 24 Hr 97.4 F-98.8 F 52-78 14-20 106-132/56-76 92-97 General appearance: no acute distress - Respiratory Respiratory exam: Present: clear to auscultation bilaterally - Cardiovascular Cardiovascular exam: Present: regular rate and rhythm - GI/Abdominal GI/Abdominal exam: Present: soft. Absent: tenderness - Extremities Exam Extremities exam: Absent: edema - Neurological Exam Neurological exam: Present: alert, oriented X3 - Psychiatric Psychiatric exam: Present: normal mood - Skin Skin exam: Present: warm, dry Results - Labs CBC & BMP: 01/29/17 17:42 01/29/17 17:42 Quality Measures - Stroke Symptom Onset Unknown: No Specialty Discharge - Follow Up or Referrals Follow up with: Tc Hardy MD [Physician] - 2 Weeks
== END 2017-02-02 17:33 | disposition home or self-care (01) | DRG 392 ==
LOC: N.2E 16:53
PROVIDERS: ADMIT Family Medicine; ATTEND Family Medicine

== ENCOUNTER 2021-05-10 15:14 | Inpatient (IN) ==
[2021-05-10] MEDS ORDERED: ACETAMINOPHEN 325 MG TABLET PO PRN (16:15)
[2021-05-10] MEDS ORDERED: ONDANSETRON 4 MG/2 ML VIAL IV PRN (16:15)
[2021-05-10 18:02] LABS: Basophils % 0.2 % (0.0-0.8); Eosinophils % 0.4 % (0.00-10.9); Hematocrit 45.4 VOL% (42.0-52.0); Hemoglobin 14.5 GM/DL (14.0-18.0); Immature Granulocytes % 0.7 %; Immature Granulocytes Absolute 0.07 #; Lymphocytes # 0.9 10*3/uL (1.4-4.0); Lymphocytes % 9.4 % (21.2-54.2); Mean Corpuscular HGB Conc 31.9 GM/DL (32-36); Mean Corpuscular Volume 95.6 FL (87-102); Mean Platelet Volume 9.4 FL (9.6-12.0); Monocytes % 13.8 % (1.7-12.7); Neutrophils % 75.5 % (38.7-73.9); Platelet Count 262 T/CUMM (130-400); Red Blood Count 4.75 MC/CUMM (3.8-5.5); Red Cell Distribution Width 12.2 % (9.3-17.3); White Blood Count 9.8 T/CUMM (4-12)
[2021-05-10] MEDS: PIPERACILLIN/TAZOBACTAM 3,375 MG in SODIUM CHLORIDE 0.9% 100 ML IV SCH (18:14)
[2021-05-10] MEDS: ENOXAPARIN 40 MG/0.4 ML SYRINGE SUBCUT SCH (18:14)
[2021-05-10] MEDS: SODIUM CHLORIDE 0.45% 1,000 ML IV SCH (18:15)
[2021-05-10 18:22] LABS: Albumin 3.2 G/DL (3.4-5.0); Bilirubin,Total 0.5 MG/DL (0.20-1.00); Calcium 9.2 MG/DL (8.5-10.1); Potassium 3.8 MMOL/L (3.5-5.1); Total Protein 8.3 G/DL (6.4-8.2)
[2021-05-10] MEDS: DOCUSATE SODIUM 100 MG CAPSULE PO SCH (20:39)
[2021-05-10] MEDS: VANCOMYCIN INJ 1,000 MG in SODIUM CHLORIDE 0.9% 250 ML IV SCH (20:39)
[2021-05-11] MEDS: PIPERACILLIN/TAZOBACTAM 3,375 MG in SODIUM CHLORIDE 0.9% 100 ML IV SCH ×4 (07:09→19:23)
[2021-05-11] MEDS: SODIUM CHLORIDE 0.45% 1,000 ML IV SCH ×3 (07:09→19:00)
[2021-05-11] MEDS: DOCUSATE SODIUM 100 MG CAPSULE PO SCH ×2 (10:21→20:24)
[2021-05-11] MEDS: PANTOPRAZOLE 40 MG TABLET PO SCH (10:21)
[2021-05-11] MEDS ORDERED: propofoL 200 MG/20 ML VIAL IV ONE (14:57)
[2021-05-11] MEDS ORDERED: LIDOCAINE 2% 5 ML VIAL ONE (14:57)
[2021-05-11] MEDS ORDERED: fentaNYL 100 MCG/2 ML VIAL ONE (14:58)
[2021-05-11] MEDS: VANCOMYCIN INJ 1,000 MG in SODIUM CHLORIDE 0.9% 250 ML IV SCH ×2 (15:08→18:08)
[2021-05-11] MEDS ORDERED: KETOROLAC 30 MG/1 ML VIAL ONE (15:39)
[2021-05-11] MEDS ORDERED: BACITRACIN OINT 0.9 GM PACK TOP ONE (15:41)
[2021-05-11] MEDS ORDERED: MORPHINE 2 MG/1 ML SYRINGE IV PRN ×2 (16:09)
[2021-05-11 21:30] LABS: Cholesterol Crystals None Seen /LPF
[2021-05-11 22:32] LABS: Lymphocytes,Synovial Fluid 3 %; Neutrophils,Synovial Fluid 92 %
[2021-05-12] MEDS: SODIUM CHLORIDE 0.45% 1,000 ML IV SCH ×3 (05:39→18:30)
[2021-05-12] MEDS: PIPERACILLIN/TAZOBACTAM 3,375 MG in SODIUM CHLORIDE 0.9% 100 ML IV SCH ×2 (05:40→16:13)
[2021-05-12 06:25] LABS: Calcium 8.6 MG/DL (8.5-10.1); Osmolality,Calculated 277.7 MOS/KG (273-304); Potassium 3.8 MMOL/L (3.5-5.1)
[2021-05-12] MEDS: DOCUSATE SODIUM 100 MG CAPSULE PO SCH ×2 (08:14→21:48)
[2021-05-12] MEDS: PANTOPRAZOLE 40 MG TABLET PO SCH (08:14)
[2021-05-12] MEDS: VANCOMYCIN INJ 1,000 MG in SODIUM CHLORIDE 0.9% 250 ML IV SCH (13:18)
[2021-05-12] MEDS: ENOXAPARIN 40 MG/0.4 ML SYRINGE SUBCUT SCH (17:53)
[2021-05-13] MEDS: PIPERACILLIN/TAZOBACTAM 3,375 MG in SODIUM CHLORIDE 0.9% 100 ML IV SCH ×3 (00:42→16:42)
[2021-05-13] MEDS: VANCOMYCIN INJ 1,000 MG in SODIUM CHLORIDE 0.9% 250 ML IV SCH (05:46)
[2021-05-13] MEDS: SODIUM CHLORIDE 0.45% 1,000 ML IV SCH (05:50)
[2021-05-13] MEDS: DOCUSATE SODIUM 100 MG CAPSULE PO SCH ×2 (08:00→20:34)
[2021-05-13] MEDS: PANTOPRAZOLE 40 MG TABLET PO SCH (08:00)
[2021-05-13] MEDS: ENOXAPARIN 40 MG/0.4 ML SYRINGE SUBCUT SCH (16:42)
[2021-05-13] MEDS ORDERED: MELATONIN 3 MG TABLET PO PRN (23:07)
[2021-05-14] MEDS: VANCOMYCIN INJ 1,000 MG in SODIUM CHLORIDE 0.9% 250 ML IV SCH ×3 (00:25→23:15)
[2021-05-14] MEDS: PIPERACILLIN/TAZOBACTAM 3,375 MG in SODIUM CHLORIDE 0.9% 100 ML IV SCH ×3 (00:46→15:39)
[2021-05-14 01:12] LABS: Bilirubin,Urine Negative (Negative); Blood, Urine Small mg/dL (Negative); Glucose,Urine (UA) Negative (Negative); Ketones,Urine Negative (Negative); Nitrite,Urine Negative (Negative); Protein,Urine Negative; RBC,Urine 1 /HPF (0-4); Urine Appearance CLEAR (Clear); Urine Color Straw (Yellow); Urine Urobilinogen < 2.0 EU/DL (<2.0)
[2021-05-14] MEDS: SODIUM CHLORIDE 0.45% 1,000 ML IV SCH (03:00)
[2021-05-14 06:07] LABS: Basophils % 0.5 % (0.0-0.8); Eosinophils # 0.3 10*3/uL (0.0-0.87); Eosinophils % 3.9 % (0.00-10.9); Hematocrit 36.1 VOL% (42.0-52.0); Hemoglobin 11.8 GM/DL (14.0-18.0); Immature Granulocytes % 0.4 %; Immature Granulocytes Absolute 0.03 #; Lymphocytes # 1.4 10*3/uL (1.4-4.0); Lymphocytes % 19.1 % (21.2-54.2); Mean Corpuscular HGB Conc 32.7 GM/DL (32-36); Mean Corpuscular Volume 94.8 FL (87-102); Mean Platelet Volume 9.5 FL (9.6-12.0); Neutrophils % 66.1 % (38.7-73.9); Platelet Count 311 T/CUMM (130-400); Red Blood Count 3.81 MC/CUMM (3.8-5.5); White Blood Count 7.5 T/CUMM (4-12)
[2021-05-14 06:34] LABS: Albumin 2.3 G/DL (3.4-5.0); Bilirubin,Total 0.6 MG/DL (0.20-1.00); Calcium 8.6 MG/DL (8.5-10.1); Osmolality,Calculated 281.1 MOS/KG (273-304); Potassium 3.6 MMOL/L (3.5-5.1); Total Protein 6.5 G/DL (6.4-8.2)
[2021-05-14] MEDS: PANTOPRAZOLE 40 MG TABLET PO SCH (08:58)
[2021-05-14] MEDS: DOCUSATE SODIUM 100 MG CAPSULE PO SCH ×2 (08:58→20:50)
[2021-05-14] MEDS: ENOXAPARIN 40 MG/0.4 ML SYRINGE SUBCUT SCH (17:50)
[2021-05-15] MEDS: PIPERACILLIN/TAZOBACTAM 3,375 MG in SODIUM CHLORIDE 0.9% 100 ML IV SCH ×2 (00:45→09:36)
[2021-05-15 08:43] VITALS: BP 136/64
[2021-05-15] MEDS: PANTOPRAZOLE 40 MG TABLET PO SCH (09:34)
[2021-05-15] MEDS: DOCUSATE SODIUM 100 MG CAPSULE PO SCH (09:34)
[2021-05-15] MEDS: VANCOMYCIN INJ 1,000 MG in SODIUM CHLORIDE 0.9% 250 ML IV SCH (12:35)
== END 2021-05-15 12:32 | disposition home or self-care (01) | DRG 506 ==
LOC: N.3E 16:52
PROVIDERS: ADMIT Family Medicine; ATTEND Family Medicine